=== PATIENT | male | born 1945 | race Two or more races ===

== ENCOUNTER 2019-10-31 14:20 | Inpatient (IN) | payer MEDICARE, MEDICAID ==
[~2019-10-31] VITALS: Ht 167.6 cm; Wt 61.7 kg
[2019-10-31 16:00] VITALS: BP 109/65
--- NOTE | 2019-10-31 16:12 | NUR ---
rn notes Patient received from EMT at this time
[2019-10-31] MEDS ORDERED: MAGNESIUM HYDROXIDE 30 ML UDC PO PRN (17:30)
[2019-10-31] MEDS ORDERED: MORPHINE SULFATE INJ 2 MG/ML DISP.SYRIN IV PRN (17:30)
[2019-10-31] MEDS ORDERED: HYDROCODONE/APAP 5/325MG 1 EACH TABLET PO PRN (17:30)
[2019-10-31] MEDS ORDERED: MAG HYDROX/AL HYDROX/SIMETH 30 ML UDC PO PRN (17:30)
[2019-10-31] MEDS ORDERED: ZOLPIDEM TARTRATE 5 MG TABLET PO PRN (17:30)
[2019-10-31] MEDS: ALBUTEROL FS 2.5 MG/3 ML VIAL.NEB NEB SCH ×2 (17:30→19:53)
[2019-10-31] MEDS ORDERED: ONDANSETRON HCL/PF 4 MG/2 ML VIAL IVP PRN (17:30)
[2019-10-31] MEDS ORDERED: ACETAMINOPHEN 325 MG TABLET PO PRN (17:30)
[2019-10-31] MEDS ORDERED: IPRATROPIUM NEB FS 0.5 MG/2.5 ML AMPUL.NEB NEB PRN (17:30)
[2019-10-31] MEDS: IV NS 0.9% 1,000 ML IV PRN (18:36)
[2019-10-31] MEDS: LEVOFLOXACIN (500MG) 500 MG TABLET PO SCH (18:48)
[2019-10-31] MEDS: ENOXAPARIN SODIUM 40 MG/0.4 ML DISP.SYRIN SQ SCH (18:49)
[2019-10-31] MEDS: CEFTRIAXONE 1 G in IV D5W 50 ML IV SCH (18:58)
--- NOTE | 2019-10-31 19:19 | NUR ---
rn closing notes Patient remains on 2l nasal cannula, no sob noted, patient denies pain at this time, a/o x4 and is able to ambulate to the restroom with no problems with balance. L 18 gauge AC patent at this time. Bed at the lowest setting, call light within reach, side rails up x2. Will give report to NOC RN for FAM bedside.
--- NOTE | 2019-10-31 19:20 | NUR ---
RN PM OPENING NOTES BEDSIDE REPORT RECIEVED FROM DONALD RN. PATIENT SEEN A/O X4 PATIENT ON 2LNC PATIENT DENIES SOB AT THIS TIME. PT VERBALIZED UNDERSTANDING TO CALL FOR ASSISTANCE IF NEEDED. PATIENT HAS L AC18 GAUGE RUNNING IVF ORDERED. BED AT LOWEST SETTING CALL LIGHT IN REACH SRX2 WILL CONT TO MONITOR.
[2019-10-31 20:07] VITALS: BP 115/71
[2019-10-31] MEDS: methylPREDNISolone SOD SUCC 40 MG/ML VIAL IV SCH (21:33)
[2019-11-01] VITALS: BP 107/66
--- NOTE | 2019-11-01 01:19 | NUR ---
critical lab procalcitonin reported by lab of . contacted ge borden np. informed of results no new orders recieved.
--- NOTE | 2019-11-01 03:10 | NUR ---
AIRPLANE FLIGHT ATTENDANT NOTES RECEIVED PT FROM KIRK DILL. PT SLEEPING. EASILY AROUSABLE. NOT IN ANY DISTRESS. NO SOB NOTED. NO S/SX OF ANY PAIN OR DISCOMFORT AT THIS TIME. WITH IV-HL PATENT & INTACT. CALL LIGHT WITHIN REACH. BED IN LOWEST POSITION. SR UP X 3 FOR SAFETY. WILL CONTINUE TO MONITOR.
[2019-11-01 04:00] VITALS: BP 110/59
[2019-11-01 06:16] LABS: APPEARANCE,URINE CLEAR (CLEAR); BILIRUBIN,URINE NEGATIVE (NEGATIVE); BLOOD, URINE TRACE-INTA Ery/uL (NEGATIVE); COLOR,URINE YELLOW (YELLOW); KETONES,URINE NEGATIVE (NEGATIVE); LEUKOCYTE ESTERASE ,URINE NEGATIVE (NEGATIVE); NITRITE, URINE NEGATIVE (NEGATIVE); PROTEIN,URINE TRACE mg/dl (NEGATIVE); UGLUCOSE 250 MG/DL mg/dL (NEGATIVE)
[2019-11-01 06:30] LABS: ALBUMIN 2.4 g/dL (3.4-5.0); BILIRUBIN,DIRECT 0.5 mg/dL (0.0-0.2); CALCIUM, SERUM 8.4 mg/dL (8.5-10.1); MAGNESIUM 2.2 mg/dL (1.8-2.4); PHOSPHORUS 2.7 mg/dL (2.5-4.9); POTASSIUM 3.8 mmol/L (3.5-5.1); TOTAL PROTEIN, SERUM 6.6 g/dL (6.4-8.2)
[2019-11-01 06:34] LABS: HEMATOCRIT 36 % (39-51); HEMOGLOBIN 12.5 g/dL (13.5-17.5); LYMPHOCYTES # (AUTO) 0.4 /CMM (0.8-4.8); LYMPHOCYTES % (AUTO) 4.6 % (20.0-44.0); MEAN CORPUSCULAR HGB CONC 35 g/dl (31.0-36.0); MEAN CORPUSCULAR VOLUME 90 fL (80-96); MONOCYTES # (AUTO) 0.5 /CMM (0.1-1.30); MONOCYTES % (AUTO) 5.5 % (2.0-12.0); NEUTROPHILS # (AUTO) 7.9 /CMM (1.8-8.9); NEUTROPHILS % (AUTO) 89.9 % (43.0-81.0); PLATELET COUNT (AUTO) 191 /CMM (150-450); WHITE BLOOD COUNT (AUTO) 8.8 K/uL (4.3-11.0)
[2019-11-01] MEDS: ALBUTEROL FS 2.5 MG/3 ML VIAL.NEB NEB SCH ×4 (07:18→20:20)
[2019-11-01 07:20] LABS: THYROID STIMULATING HORMONE 0.346 uIU/mL (0.358-3.74)
[2019-11-01] MEDS: PANTOPRAZOLE 40 MG TABLET.DR PO SCH (07:36)
[2019-11-01] MEDS: IV NS 0.9% 1,000 ML IV PRN ×2 (07:45→23:48)
[2019-11-01 08:00] VITALS: BP 120/63
--- NOTE | 2019-11-01 08:11 | NUR ---
TELE/RN OPENING NOTES RECEIVED PATIENT LYING ON BED COMFORTABLY. PT SLEEPING. NOT IN ANY DISTRESS. NO SOB NOTED. NO S/SX OF ANY PAIN OR DISCOMFORT AT THIS TIME. WITH IV-HL PATENT & INTACT. CALL LIGHT WITHIN REACH. BED IN LOWEST POSITION. SR UP X 3 FOR SAFETY. WILL CONTINUE TO MONITOR
[2019-11-01] MEDS: methylPREDNISolone SOD SUCC 40 MG/ML VIAL IV SCH ×3 (09:08→16:52)
[2019-11-01 09:45] LABS: BACTERIA,URINE None seen /HPF (None Seen); MUCUS,URINE Rare /LPF (None Seen); RBC,URINE 0-2 /HPF (0-2); WBC,URINE NONE SEEN /HPF (0-3)
[2019-11-01] MEDS ORDERED: LEVOFLOXACIN 750 MG /D5W 150ML 750 MG in PREMIX 1 EA IV SCH (17:30)
[2019-11-01] MEDS: CEFTRIAXONE 1 G in IV D5W 50 ML IV SCH (17:34)
--- NOTE | 2019-11-01 18:21 | NUR ---
TELE/RN CLOSING NOTES PATIENT IS LYING ON BED COMFORTABLY. PATEIN ALERT AND ORIENTED X4. NO RESPIRATORY DISTRESS NOTED. PATIENT DENIES PAIN AT THIS TIME. IV FLUID OF NS1L @ 70ML/HR ON AND INFUSING WELL. SEEN AND EXAMINED BY MD WITH ORDERS MADE AND CARRIED OUT. ALL DUE MEDS WAS GIVEN. KEPT PATIENT CLEAN AND DRY THE WHOLE TIME. CHECKED PATIENT EVERY 2 HOURS. BED IN LOWEST POSITION AND LOCKED. SIDE RAILS UP X2. WILL ENDORSED TO EMBEDDED SYSTEMS ENGINEER FOR FAM.
[2019-11-01 18:48] VITALS: BP 118/60
--- NOTE | 2019-11-01 19:24 | NUR ---
MS RN OPENING NOTES PATIENT RECEIVED RESTING IN BED COMFORTABLY WITH FAMILY AT BEDSIDE, A/O X 4. ABLE TO MAKE NEEDS KNOWN. PATIENT 2 L OF O2 VIA NC WITH BREATHING EVEN AND UNLABORED. NO SOB NOTED. NO SIGNS OF ACUTE DISTRESS. NO CURRENT COMPLAINTS OF PAIN OR DISCOMFORT. PATIENT AMBULATORY, HAS BRP. IV LOCATED ON LAC #18 RUNNING NS @ 70 ML/ HR. SAFETY PRECAUTIONS IN PLACE WITH BED IN LOWEST POSITION, CALL LIGHTWITHIN REACH, BREAKS ON, AND SIDE RAILS UP. WILL CONTINUE TO MONITOR.
[2019-11-01 20:00] VITALS: BP 138/78
[2019-11-01] MEDS: LEVOFLOXACIN (500MG) 500 MG TABLET PO SCH (20:03)
[2019-11-01] MEDS: ENOXAPARIN SODIUM 40 MG/0.4 ML DISP.SYRIN SQ SCH (20:03)
[2019-11-01 20:06] VITALS: BP 138/78
[2019-11-02 06:30] LABS: HEMATOCRIT 36 % (39-51); HEMOGLOBIN 12.3 g/dL (13.5-17.5); LYMPHOCYTES # (AUTO) 0.3 /CMM (0.8-4.8); LYMPHOCYTES % (AUTO) 3.4 % (20.0-44.0); MEAN CORPUSCULAR HGB CONC 34 g/dl (31.0-36.0); MEAN CORPUSCULAR VOLUME 90 fL (80-96); MONOCYTES # (AUTO) 0.4 /CMM (0.1-1.30); MONOCYTES % (AUTO) 4.8 % (2.0-12.0); NEUTROPHILS # (AUTO) 7.2 /CMM (1.8-8.9); NEUTROPHILS % (AUTO) 91.8 % (43.0-81.0); PLATELET COUNT (AUTO) 230 /CMM (150-450); RED BLOOD CELL COUNT(AUTO) 4.05 MIL/uL (4.5-6.0); WHITE BLOOD COUNT (AUTO) 7.8 K/uL (4.3-11.0)
--- NOTE | 2019-11-02 06:41 | NUR ---
MS RN CLOSING NOTES PATIENT RESTING IN BED COMFORTABLY, A/O X 4. ABLE TO MAKE NEEDS KNOWN. PATIENT 2 L OF O2 VIA NC WITH BREATHING EVEN AND UNLABORED. NO SOB NOTED, ONLY UPON EXERTION. NO SIGNS OF ACUTE DISTRESS. NO CURRENT COMPLAINTS OF PAIN OR DISCOMFORT. PATIENT AMBULATORY, HAS BRP. IV LOCATED ON LAC #18 RUNNING NS @ 70 ML/ HR. SAFETY PRECAUTIONS IN PLACE WITH BED IN LOWEST POSITION, CALL LIGHT WITHIN REACH, BREAKS ON, AND SIDE RAILS UP. ALL NEEDS ATTENDED TO THROUGHOUT THE NIGHT. WILL ENDORSE TO ONCOMING SHIFT.
[2019-11-02 07:03] LABS: CALCIUM, SERUM 8.2 mg/dL (8.5-10.1); CREATININE 0.8 mg/dL (0.6-1.3); POTASSIUM 3.7 mmol/L (3.5-5.1)
[2019-11-02] MEDS: PANTOPRAZOLE 40 MG TABLET.DR PO SCH (07:25)
[2019-11-02] MEDS: ALBUTEROL FS 2.5 MG/3 ML VIAL.NEB NEB SCH ×3 (07:35→19:45)
--- NOTE | 2019-11-02 07:58 | NUR ---
MS/RN OPENING NOTES RECEIVED PATIENT RESTING IN BED COMFORTABLY, A/O X 4. PATIENT 2 L OF O2 VIA NC WITH BREATHING EVEN AND UNLABORED. NO SOB NOTED, ONLY UPON EXERTION. NO SIGNS OF ACUTE DISTRESS. NO CURRENT COMPLAINTS OF PAIN OR DISCOMFORT. PATIENT AMBULATORY, HAS BRP. IV LOCATED ON LAC #18 RUNNING NS @ 70 ML/ HR. SAFETY PRECAUTIONS IN PLACE WITH BED IN LOWEST POSITION, CALL LIGHT WITHIN REACH, BREAKS ON, AND SIDE RAILS UP. WILL CONTINUE TO MONITOR.
[2019-11-02 08:00] VITALS: BP 131/80
[2019-11-02] MEDS: methylPREDNISolone SOD SUCC 40 MG/ML VIAL IV SCH ×3 (08:26→18:02)
[2019-11-02 08:47] LABS: LYMPHOCYTES % (MANUAL) 6 % (16-48); MONOCYTES % (MANUAL) 4 % (0-11.0); NEUTROPHILS % (MANUAL) 90 (42-76)
--- NOTE | 2019-11-02 09:30 | NUR ---
MS/RN NOTES PATIENT IS OUT ON OXYGEN TO MONITOR IF HE CAN TOLERATE, MD IS AWARE.
[2019-11-02] MEDS: IV NS 0.9% 1,000 ML IV PRN (13:21)
[2019-11-02 16:00] VITALS: BP 144/90
--- NOTE | 2019-11-02 17:18 | NUR ---
MS/RN Saturation Patient's room air saturation while at rest 88%.
[2019-11-02] MEDS: CEFTRIAXONE 1 G in IV D5W 50 ML IV SCH (17:47)
--- NOTE | 2019-11-02 18:17 | NUR ---
MS/RN CLOSING NOTES PATIENT IS ON THE BED LYING COMFORTABLY. PATIENT IS ALERT AND ORIENTED X4. DENIES PAIN AT THIS TIME. NO RESPIRATORY DISCOMFORT NOTED. IV FLUID OF NS 1L AT 70ML/HR ON AND INFUSING WELL. SEEN AND EXAMINED BY MD WITH ORDERS MADE AND CARRIED OUT. ALL DUE MEDS WAS GIVEN. PATIENT CHECKED EVERY 2 HOURS. BED IN LOWEST POSITION. SIDE RAILS UP X2. CALL LIGHT WITH IN REACH. WILL ENDORSED TO LENS MOLDER FOR FAM.
--- NOTE | 2019-11-02 19:30 | NUR ---
MS RN OPENING NOTE RECEIVED PATIENT IN BED. A/OX4. TOLERATING ROOM AIR. RESPIRATIONS ARE EVEN AND UNLABORED. NO S/S SOB NOTED. DENIES PAIN AT THIS TIME. IN NO APPARENT DISTRESS. IV ACCESS IN LAC#18 RUNNING NS@70ML/HR/ BED IS LOW AND LOCKED HOB IN HIGH FOWLERS, SIDE RIALS UP X2, CALL LIGHT WITHIN REACH. WILL CONTINUE TO MONITOR.
--- NOTE | 2019-11-02 19:35 | NUR ---
MS RN NOTE CALLED LAB TO NOTIFY THERE IS A RESPIRATORY CULTURE READY FOR VEHICLE GLASS TECHNICIAN.
[2019-11-02 20:00] VITALS: BP 130/90
[2019-11-02] MEDS: LEVOFLOXACIN (500MG) 500 MG TABLET PO SCH (20:14)
[2019-11-02] MEDS: ENOXAPARIN SODIUM 40 MG/0.4 ML DISP.SYRIN SQ SCH (20:14)
--- NOTE | 2019-11-03 00:15 | NUR ---
MS RN NOTE DISCONNECTED PATIENT FROM IVF D/T SOUNDING CONGESTED. WILL CONTINUE TO MONITOR.
[2019-11-03 06:14] LABS: BASOPHILS % (AUTO) 0.2 % (0.0-2.0); HEMATOCRIT 38 % (39-51); HEMOGLOBIN 12.8 g/dL (13.5-17.5); LYMPHOCYTES # (AUTO) 0.3 /CMM (0.8-4.8); LYMPHOCYTES % (AUTO) 4.3 % (20.0-44.0); MEAN CORPUSCULAR HGB CONC 34 g/dl (31.0-36.0); MEAN CORPUSCULAR VOLUME 90 fL (80-96); MONOCYTES # (AUTO) 0.6 /CMM (0.1-1.30); MONOCYTES % (AUTO) 9.4 % (2.0-12.0); NEUTROPHILS # (AUTO) 5.3 /CMM (1.8-8.9); NEUTROPHILS % (AUTO) 86.1 % (43.0-81.0); PLATELET COUNT (AUTO) 267 /CMM (150-450); WHITE BLOOD COUNT (AUTO) 6.1 K/uL (4.3-11.0)
--- NOTE | 2019-11-03 06:58 | NUR ---
MS RN CLOSING NOTE PATIENT IN BED. A/OX4. TOLERATING ROOM AIR. RESPIRATIONS ARE EVEN AND UNLABORED. NO SOB NOTED.NO C/O PAIN THROUGHOUT SHIFT. NO DISTRESS NOTED. IV ACCESS MAINTAINED IN LAC#18 PATENT AND RUNNING TKO @3ML. BED REMAINS LOW AND LOCKED HOB IN HIGH FOWLERS, SIDE RIALS UP X2, CALL LIGHT WITHIN REACH. WILL ENDORSE TO NEXT SHIFT.
[2019-11-03 07:19] LABS: CALCIUM, SERUM 8.9 mg/dL (8.5-10.1); CREATININE 0.9 mg/dL (0.6-1.3); POTASSIUM 3.6 mmol/L (3.5-5.1)
--- NOTE | 2019-11-03 07:56 | NUR ---
MS RN NOTES PATIENT RECEIVED IN BED RESTING. ALERT AND ORIENTED X 4. PATIENT ON ROOM AIR, NO SIGNS OF SOB, NO RESPIRATORY DISTRESS PRESENT, WITH NON-LABORED BREATHING. PATIENT SKIN WARM, DRY AND INTACT. IV ACCESS INTACT AND PATENT. PROVIDED COMFORT MEASURES TO THE PATIENT. SAFETY PRECAUTIONS IN PLACE, WITH BED IN THE LOWEST POSITION, BED LOCKED, BED ALARM ON, BILATERAL SIDE RAILS UP, AND CALL LIGHT WITHIN EASY REACH. WILL CONTINUE TO MONITOR PATIENT.
[2019-11-03 08:00] VITALS: BP 144/84
[2019-11-03] MEDS: ALBUTEROL FS 2.5 MG/3 ML VIAL.NEB NEB SCH (08:15)
[2019-11-03] MEDS ORDERED: ALBUT2 NEB (08:51)
[2019-11-03] MEDS ORDERED: PRED20TA PO (08:51)
[2019-11-03] MEDS ORDERED: LEVO500T2 PO (08:51)
[2019-11-03] MEDS ORDERED: IPRA0.2S9 NEB (08:51)
[2019-11-03] MEDS: methylPREDNISolone SOD SUCC 40 MG/ML VIAL IV SCH (08:57)
[2019-11-03] MEDS: PANTOPRAZOLE 40 MG TABLET.DR PO SCH (08:57)
--- NOTE | 2019-11-03 09:22 | NUR ---
MS RN NOTES PATIENT WITH DISCHARGE ORDER FROM DR CHOU. WITH DISCHARGE PRESCRIPTIONS SENT TO [facility] NERY GONZALEZ ([phone]). PATIENT AND SON LILI MADE AWARE AND REQUESTED IF PRESCRIPTIONS MAY BE SENT TO [facility] NERY KYLE ([phone]) [facility] WHICH IS [address] FROM [facility]. PLACED CALL TO [facility] AND SPOKE WITH PHARMACIST YUE, VERIFIED THAT THEY RECEIVED PRESCRIPTIONS AND SAID THAT SHE WILL TRY TO SEND PRESCRIPTIONS TO [facility]. WILL CONTINUE TO FOLLOW-UP Addendum: 11/03/19 at 1013 by QING WALLIS RN CORRECTION: RIKI VALENCIA FROM [facility]
[2019-11-03 09:59] LABS: BAND % (MANUAL) 4 % (0.0-5.0); LYMPHOCYTES % (MANUAL) 8 % (16-48); MONOCYTES % (MANUAL) 2 % (0-11.0); MYELOCYTES % 1 % (0-0); NEUTROPHILS % (MANUAL) 85 (42-76)
--- NOTE | 2019-11-03 11:17 | NUR ---
MS RN NOTES PATIENT DISCHARGE TEACHING AND EDUCATION PROVIDED TO PATIENT AND SON. EDUCATED ON NEW MEDICATIONS, AND PRESCRIPTION GIVEN TO PATIENT'S SON TO SCOURING PADS SUPERVISOR MEDICATIONS. INFORMED PATIENT AND SON, ABOUT VERIFICATION OF MEDICATIONS, BUT THE PREFERRED PHARMACY ([facility]) WAS UNABLE TO REACH. PATIENT BELONGINGS VERIFIED AND COMPLETE. ID BAND REMOVED. SKIN INTACT. IV ACCESS REMOVED, APPLIED PRESSURE TO SITE, KEPT SITE CLEAN AND DRY WITH GAUZE, NO ACTIVE BLEEDING. PATIENT LEFT UNIT VIA WHEELCHAIR IN STABLE CONDITION, NO PAIN AND NO DISTRESS, ACCOMPANIED BY STAFF. PATIENT LEFT WITH SON IN PRIVATE CAR.
== END 2019-11-03 11:30 | disposition home health service (06) | DRG 193 ==
LOC: TELE 15:58 → MED 11-01 08:11
PROVIDERS: ADMIT Nurse Practitioner Acute Care; ATTEND Family Medicine
DX: J15.9 Unspecified bacterial pneumonia (principal); J96.01 Acute respiratory failure with hypoxia; N17.0 Acute kidney failure with tubular necrosis; J96.02 Acute respiratory failure with hypercapnia; J44.0 Chronic obstructive pulmonary disease with (acute) lower respiratory infection; E44.0 Moderate protein-calorie malnutrition; J44.1 Chronic obstructive pulmonary disease with (acute) exacerbation; E78.5 Hyperlipidemia, unspecified; I10 Essential (primary) hypertension; N40.0 Benign prostatic hyperplasia without lower urinary tract symptoms; E78.00 Pure hypercholesterolemia, unspecified; H40.9 Unspecified glaucoma; Z87.891 Personal history of nicotine dependence; Z99.81 Dependence on supplemental oxygen
CPT/HCPCS: 36415; 71045-TC; 80048-TC; 80053-TC; 80061-TC; 80076-TC; 81000-TC; 83735-TC; 84100-TC; 84443-TC; 85025-TC; 87070-TC; 87081-TC; 94799-TC; G0378; J0696; J1650; J2920; J7030; J7060